=== PATIENT | female | born 1990 | race Native Hawaiian/Other Pacific Islander ===

== ENCOUNTER 2017-08-08 03:10 | Emergency (ER) | payer OTHER ==
[~2017-08-08] VITALS: Ht 149.9 cm; Wt 63.6 kg
[2017-08-08 04:03] LABS: PLATELET COUNT 266 K/uL (152-353)
[2017-08-08 04:12] LABS: POTASSIUM 3.9 mmol/L (3.6-5.2)
== END 2017-08-08 04:47 | disposition home or self-care (01) ==
LOC: ED 03:10
DX: J06.9 Acute upper respiratory infection, unspecified (principal)
CPT/HCPCS: 36415; 80053; 85027; 87081; 87804; 87880; 99283